=== PATIENT | female | born 1965 | race African-American/Black ===

== ENCOUNTER 2018-01-12 21:07 | Inpatient (IN) | payer MEDICAID ==
[~2018-01-12] VITALS: Ht 177.8 cm; Wt 101.6 kg
[2018-01-12] MEDS ORDERED: ZOLPIDEM TARTRATE 10 MG TABLET PO PRN (22:30)
[2018-01-12] MEDS ORDERED: LORazepam 2 MG TABLET PO PRN (22:30)
[2018-01-13 00:51] VITALS: BP 156/67
[2018-01-13] MEDS ORDERED: ALBUTEROL SULFATE HFA 90 MCG/PUFF 8 GM INHALER IH PRN (07:15)
[2018-01-13] MEDS ORDERED: MAGNESIUM HYDROXIDE SUSPENSION 30 ML UDCUP PO PRN (07:15)
[2018-01-13] MEDS ORDERED: LOPERAMIDE HCL 2 MG CAPSULE PO PRN (07:15)
[2018-01-13] MEDS ORDERED: ACETAMINOPHEN 325 MG TABLET PO PRN (07:15)
[2018-01-13] MEDS ORDERED: CloNIDine HCL 0.1 MG TABLET PO PRN (07:15)
[2018-01-13] MEDS ORDERED: PETROLATUM,WHITE 71 GM JELLY TP PRN (07:15)
[2018-01-13] MEDS ORDERED: IBUPROFEN 400 MG TABLET PO PRN (07:15)
[2018-01-13] MEDS ORDERED: ONDANSETRON HCL 4 MG TABLET PO PRN (07:15)
[2018-01-13] MEDS ORDERED: MAG HYDROX/AL HYDROX/SIMETH ES 30 ML SUSPENSION UDCUP PO PRN (07:15)
[2018-01-13] MEDS ORDERED: DOCUSATE SODIUM 100 MG CAPSULE PO PRN (07:15)
[2018-01-13] MEDS ORDERED: GuaiFENesin/D-METHORPHAN [SUGAR-FREE] 200-20MG/10 ML SYRUP UDCUP PO PRN (07:15)
[2018-01-13 08:36] LABS: BASOPHILS % (AUTO) 0.5 % (0.0-2.0); EOSINOPHILS % (AUTO) 3.8 % (1.0-6.0); HEMATOCRIT 33.5 % (36-46); HEMOGLOBIN 11.1 g/dL (12.0-16.0); LYMPHOCYTES % (AUTO) 27.4 % (22.0-44.0); MEAN CORPUSCULAR HEMOGLOBIN 28.5 pg (26.0-34.0); MEAN CORPUSCULAR VOLUME 86 fL (80-100); MONOCYTES # (AUTO) 0.3 K/uL (0.1-1.0); MONOCYTES % (AUTO) 8.7 % (2.0-9.0); NEUTROPHILS # (AUTO) 2.3 K/uL (1.8-7.7); NEUTROPHILS % (AUTO) 59.6 % (40.0-70.0); PLATELET COUNT (AUTO) 255 K/uL (150-450); RED BLOOD CELL COUNT(AUTO) 3.88 MIL/uL (4.00-5.20); RED CELL DISTRIBUTION WIDTH 19.2 % (11.5-14.5)
[2018-01-13 08:56] LABS: HEMOGLOBIN A1C 5.3 % (4.5-6.2)
[2018-01-13 09:10] LABS: ALANINE AMINOTRANSFERASE 16 U/L (12-78); ALKALINE PHOSPHATASE 95 U/L (46-116); ANION GAP 5 mmol/L (8-16); ASPARTATE AMINOTRANSFERASE 16 U/L (15-37); BILIRUBIN,TOTAL 0.2 mg/dL (0.1-1.0); CALCIUM, TOTAL 9.8 mg/dL (8.8-10.5); CARBON DIOXIDE 28 mmol/L (22-29); CHLORIDE 102 mmol/L (98-107); CHOL/HDL RATIO 3.4 (3.9-5.7); CHOLESTEROL 139 mg/dL (131-200); CREATININE 0.81 mg/dL (0.60-1.30); FREE T4 (FREE THYROXINE) 0.93 ng/dL (0.76-1.46); GLOMERULAR FILTR. RATE CALC > 60 mL/min (>60); GLUCOSE,RANDOM 95 mg/dL (70-110); HCG,QUANTITATIVE < 1 mIU/mL (0-6); HDL CHOLESTEROL 41 mg/dL (40-60); LDL CHOL (CALC.) 77 mg/dL (0-130); POTASSIUM 3.9 mmol/L (3.5-5.1); SODIUM SERUM 135 mmol/L (136-145); THYROID STIMULATING HORMONE 1.27 uIU/mL (0.36-3.74); TOTAL PROTEIN, SERUM 7.6 g/dL (6.4-8.2); TRIGLYCERIDES 107 mg/dL (15-150); UREA NITROGEN, BLOOD 8 mg/dL (7-18)
[2018-01-13 14:46] VITALS: BP 129/88
[2018-01-13] MEDS: NICOTINE 14 MG/24 HOUR PATCH TD PRN (14:55)
[2018-01-13 16:32] VITALS: BP 134/78
[2018-01-14] MEDS: FERROUS SULFATE 325 MG EC TABLET PO SCH ×2 (06:51→16:39)
[2018-01-14 08:34] VITALS: BP 125/73
[2018-01-14] MEDS: FLUoxetine HCL 20 MG CAPSULE PO SCH (10:56)
[2018-01-14 16:03] VITALS: BP 133/88
[2018-01-14] MEDS ORDERED: FERROUS SULFATE 325 MG EC TABLET PO SCH (17:00)
[2018-01-14] MEDS: NICOTINE 14 MG/24 HOUR PATCH TD PRN (17:01)
[2018-01-15 06:17] VITALS: BP 125/75
[2018-01-15] MEDS: FERROUS SULFATE 325 MG EC TABLET PO SCH ×2 (06:53→17:05)
[2018-01-15 08:12] VITALS: BP 136/94
[2018-01-15] MEDS: FLUoxetine HCL 20 MG CAPSULE PO SCH (08:41)
[2018-01-15 09:00] LABS: % IRON SATURATION 8.5 % (22-44)
[2018-01-15] MEDS ORDERED: FLUO-191 PO (10:08)
[2018-01-15] MEDS ORDERED: FERR-89 PO (10:08)
[2018-01-15] MEDS: NICOTINE 14 MG/24 HOUR PATCH TD PRN (12:45)
== END 2018-01-15 16:30 | disposition home or self-care (01) | DRG 754 ==
LOC: B3A 22:21
PROVIDERS: ADMIT Psychiatry & Neurology Child & Adolescent Psychiatry; ATTEND Psychiatry & Neurology Child & Adolescent Psychiatry
DX: F32.9 Major depressive disorder, single episode, unspecified (principal); E87.1 Hypo-osmolality and hyponatremia; R45.851 Suicidal ideations; D64.9 Anemia, unspecified; D72.819 Decreased white blood cell count, unspecified; I10 Essential (primary) hypertension; Z59.0 Homelessness; Z79.899 Other long term (current) drug therapy
CPT/HCPCS: 82728; 83036; 83540; 83550; 84439; 84443

== ENCOUNTER 2020-07-02 19:03 | Emergency (ER) | payer MEDICAID ==
[~2020-07-02] VITALS: Ht 177.8 cm; Wt 90.9 kg
[~2020-07-02 19:03] MED LIST: FERR-89 PO; FLUO-191 PO
[2020-07-02 22:51] VITALS: BP 118/79
== END 2020-07-02 23:04 | disposition home or self-care (01) ==
LOC: EMS 19:08
DX: F32.9 Major depressive disorder, single episode, unspecified (principal); F12.90 Cannabis use, unspecified, uncomplicated; F19.90 Other psychoactive substance use, unspecified, uncomplicated; F17.210 Nicotine dependence, cigarettes, uncomplicated; Z90.89 Acquired absence of other organs; Z91.012 Allergy to eggs
CPT/HCPCS: 99284; Z7502